=== PATIENT | female | born 1970 | race Caucasian/White ===

== ENCOUNTER → 2018-02-18 | Outpatient (CLI) | payer OTHER | END | disposition home or self-care (01) | LOC: CFH 15:32 | PROVIDERS: ATTEND Physician Assistant | DX: I10 Essential (primary) hypertension (principal); E11.9 Type 2 diabetes mellitus without complications; E78.5 Hyperlipidemia, unspecified; E55.9 Vitamin D deficiency, unspecified; R59.9 Enlarged lymph nodes, unspecified; R79.9 Abnormal finding of blood chemistry, unspecified; Z72.0 Tobacco use | CPT/HCPCS: 76536 ==

== ENCOUNTER → 2018-03-04 | Outpatient (CLI) | payer OTHER | END | disposition home or self-care (01) | LOC: CFH 11:15 | PROVIDERS: ATTEND Physician Assistant | DX: M50.30 Other cervical disc degeneration, unspecified cervical region (principal); I10 Essential (primary) hypertension; E11.9 Type 2 diabetes mellitus without complications; E78.5 Hyperlipidemia, unspecified; E55.9 Vitamin D deficiency, unspecified; R59.9 Enlarged lymph nodes, unspecified; R79.9 Abnormal finding of blood chemistry, unspecified; Z72.0 Tobacco use | CPT/HCPCS: 36415; 71046; 72050; 81270; 87806; G0475 ==

== ENCOUNTER → 2018-03-25 | Outpatient (CLI) | payer OTHER ==
[2018-03-25 12:46] LABS: HCT (SEDRATE) 46.9 % (34.6-47.8)
[2018-03-25 12:49] LABS: CHLORIDE 103 mmol/L (98-107)
[2018-03-25 13:03] LABS: MICROSCOPIC NOT IND
[2018-03-25 13:11] LABS: CULTURE INDICATED? NO
[2018-03-25 13:29] LABS: ALANINE AMINOTRANSFERASE 25 U/L (12-78); ALKALINE PHOSPHATASE 74 U/L (45-117); ANION GAP 8 mmol/L (5-15); BILIRUBIN,TOTAL 0.6 mg/dL (0.2-1.0); C-REACTIVE PROTEIN, QUANT 0.74 mg/dL (0.02-0.49); CALCIUM 9.1 mg/dL (8.5-10.1); CREATININE 0.78 mg/dL (0.55-1.02); FOLATE LEVEL 17.8 ng/mL (3.1-17.5); TOTAL PROTEIN 7.6 g/dL (6.4-8.2)
== END ==
LOC: CFH 11:49
PROVIDERS: ATTEND Physician Assistant
DX: Z13.220 Encounter for screening for lipoid disorders (principal); Z12.11 Encounter for screening for malignant neoplasm of colon; Z12.39 Encounter for other screening for malignant neoplasm of breast; Z12.4 Encounter for screening for malignant neoplasm of cervix; R01.1 Cardiac murmur, unspecified; E11.9 Type 2 diabetes mellitus without complications; E78.5 Hyperlipidemia, unspecified; E55.9 Vitamin D deficiency, unspecified; M79.642 Pain in left hand; I10 Essential (primary) hypertension; R59.9 Enlarged lymph nodes, unspecified; R79.9 Abnormal finding of blood chemistry, unspecified; M54.2 Cervicalgia; Z72.0 Tobacco use
CPT/HCPCS: 36415; 80053; 81003; 82607; 82746; 84550; 85651; 86140; 87040